=== PATIENT | female | born 2000 | race Caucasian/White ===

== ENCOUNTER 2024-11-13 12:58 | Outpatient (AMB) | payer OTHER, SELFPAY ==
--- NOTE | 2024-11-13 13:25 | AM.OFFWIN_ITS ---
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 Patient Tobacco Use Status: Never used Tobacco Allergies No Known Allergies Allergy (Verified 11/13/24 13:28) Do you need a note to return to daycare/school/sports/work: Yes HPI HPI Comments History of Present Illness Details History - The patient is a 24-year-old female pr esenting with symptoms of a sore throat, cough, congestion, and ear discomfort x8 days. - The sore throat began last Saturday an d resolved by Saturday morning, initially suspected to be strep throat. - A cough developed subsequently and has persisted, with increased severity at night and upon waking. - The patient reports congestion and ear discomfort, with the right ear experiencing random fluttering and blockage, but no history of ear infections. Denies sinus pain or headaches. - A fever was present during the initial sore throat episode but resolved by Saturday night. - The patient has been using DayQuil and NyQuil, which provide some relief during the day. - No history of smoking, vaping, asthma, or COPD. Physical Exam General: Cooperative, healthy appearing, comfortable and no acute distress Orientation/consciousness: Patient oriented x3 Limitations: No limitations Head: Normal to inspection Ears: Hearing grossly normal bilaterally, external ears normal, TM's with erythema but no infection noted Nose: Normal external nose present, Normal nares present and No nasal discharge present Face and sinus: Normal facial exam and Yes sinuses nontender Mouth: Normal oral and palatal mucosa present and moist mucous membranes Throat: Yes tonsils normal, Yes uvula midline. Posterior oropharynx erythema, no exudates Eyes: Appearance normal, both eyes and all related structures Neck: Normal visual inspection, full ROM Respiratory: Clear to auscultation bilaterally. Normal respiratory effort, able to speak in complete sentences, Actively coughing, no respiratory distress, not tachypneic, no tripod positioning and no use of accessory muscles Cardiovascular: Regular rate and rhythm. Normal S1 and S2 Skin: No rashes or lesions noted Neuro: Patient oriented x3 Extremities: Normal to inspection and Yes no clubbing, cyanosis or edema PFSH Social History Patient Tobacco Use Status: Never used Tobacco Review of Systems Const All systems reviewed & are unremarkable except as noted in HPI and below Physical Exam Vital Signs: Last Vital Signs Temp 97.9 F 11/13/24 13:27 Pulse 65 11/13/24 13:27 BP 108/70 11/13/24 13:27 Pulse Ox 98 11/13/24 13:27 Oxygen Delivery Method Room Air 11/13/24 13:27 BMI result Body Mass Index 36.9 Assessment & Plan Assessment & Plan (1) URI, acute: Code(s): J06.9 - Acute upper respiratory infection, unspecified Plan: VSS, pt well appearing and PE unremarkable. - Prescribed Tessalon Perles for nighttime cough suppression to aid sleep. - Recommended continuation of [id number] decongestants and antihistamines, such as Jessica-D, to manage congestion and postnasal drip. - Advised monitoring symptoms over the ; if no improvement by Saturday, a Z-Tani will be prescribed to address potential bacterial infection. - Suggested using hot tea with honey and throat sprays for symptomatic relief. Patient was informed and verbally consented to the use of an ambient scribe for clinic note documentation during this visit Medications: New benzonatate 200 mg PO BEDTIME PRN 10 caps 0RF cough azithromycin For 250 mg dose pack: take 500 mg today (day 1), then 250 mg for 4 days (days 2-5) PO 6 tabs 0RF Coding Level of Care Code New Pt Level 3 (52415) Diagnoses URI, acute J06.9
[2024-11-13 13:27] VITALS: BP 108/70; PULSE 65; TEMP 36.6; O2SAT 98; BMI 36.9
== END 2024-11-13 14:06 | disposition home or self-care (01) ==
PROVIDERS: Visit Provider Physician Assistant
DX: J06.9 Acute upper respiratory infection, unspecified (principal)

== ENCOUNTER → 2024-11-13 12:58 | Outpatient (BNVA) | payer OTHER, SELFPAY | PROVIDERS: Visit Provider Physician Assistant ==